=== PATIENT | male | born 1955 | race Caucasian/White ===

== ENCOUNTER 2019-01-07 21:01 | Emergency (ER) | payer BC ==
[2019-01-07] MEDS ORDERED: OXYCODONE-ACETAMINOPHEN 5-325 MG TABLET PO ONE (23:17)
[2019-01-07] MEDS ORDERED: DIPH/PERTUSS(ACELL)/TETANUS VAC/PF 0.5 ML SYR (>=10YO) IM ONE (23:17)
--- NOTE | 2019-01-08 00:05 | RADIOLOGY REPORT (SQ) ---
EXAM DESCRIPTION: CT HEAD WITHOUT IV CONTRAST COMPLETED DATE/TME: 01/07/2019 23:14 CLINICAL HISTORY: 63 years, Male, fall COMPARISON: None. TECHNIQUE: CT brain and maxillofacial without contrast. This exam was performed according to our departmental dose optimization program which includes use of automated exposure control, adjustment of the mA and/or kV according to patient size and/or use of iterative reconstruction technique. Images stored on PACS. All CT scanners at this facility use dose modulation, iterative reconstruction, and/or weight based dosing when appropriate to reduce radiation dose to as low as reasonably achievable (ALARA). [facility]: Dose Right [facility]: CareDose [facility]: Dose Right [facility]: Teradose 4D [facility]: BioAxone Therapeutic LIMITATIONS: None. FINDINGS: Brain: The ventricles, sulci, and cisterns are symmetric and unremarkable. The sanches-white matter differentiation is preserved. There is no mass effect, midline shift, intra- or extra-axial fluid collection/acute hemorrhage. Maxillofacial: LEFT maxillary sinus mucosal thickening. The frontal sinuses, frontal-ethmoid recesses, anterior/posterior ethmoids, sphenoid sinuses, and maxillary sinuses are otherwise well developed and clear. The osteomeatal complexes are patent. The nasal turbinates are within normal limits. Leftward nasal septal deviation with osseous spur abutting the inferior LEFT turbinate. The cribriform plate and lamina papyraceae within normal limits. Fractures of the bilateral nasal bones deviated toward the LEFT with fracture of the bony nasal septum suspected. Nasal soft tissue swelling. The orbits are unremarkable. The optic nerves and globes appear intact. The periorbital soft tissues show no evidence of inflammation. IMPRESSION: 1. No acute intracranial abnormalities. 2. Fractures of the bilateral nasal bones deviated toward the LEFT with suspected fracture of the bony nasal septum and nasal soft tissue swelling. TECHNICAL DOCUMENTATION: Quality ID # 436: Final reports with documentation of one or more dose reduction techniques (e.g., Automated exposure control, adjustment of the mA and/or kV according to patient size, use of iterative reconstruction technique) copyright 2011 [employer]- All Rights Reserved
--- NOTE | 2019-01-08 00:06 | RADIOLOGY REPORT (SQ) ---
EXAM DESCRIPTION: CT MAXILLOFACIAL WITHOUT IV CONTRAST COMPLETED DATE/TME: 01/07/2019 23:15 CLINICAL HISTORY: 63 years, Male, fall COMPARISON: None. TECHNIQUE: CT brain and maxillofacial without contrast. This exam was performed according to our departmental dose optimization program which includes use of automated exposure control, adjustment of the mA and/or kV according to patient size and/or use of iterative reconstruction technique. Images stored on PACS. All CT scanners at this facility use dose modulation, iterative reconstruction, and/or weight based dosing when appropriate to reduce radiation dose to as low as reasonably achievable (ALARA). [facility]: Dose Right [facility]: CareDose [facility]: Dose Right [facility]: Teradose 4D [facility]: [employer] LIMITATIONS: None. FINDINGS: Brain: The ventricles, sulci, and cisterns are symmetric and unremarkable. The sanches-white matter differentiation is preserved. There is no mass effect, midline shift, intra- or extra-axial fluid collection/acute hemorrhage. Maxillofacial: LEFT maxillary sinus mucosal thickening. The frontal sinuses, frontal-ethmoid recesses, anterior/posterior ethmoids, sphenoid sinuses, and maxillary sinuses are otherwise well developed and clear. The osteomeatal complexes are patent. The nasal turbinates are within normal limits. Leftward nasal septal deviation with osseous spur abutting the inferior LEFT turbinate. The cribriform plate and lamina papyraceae within normal limits. Fractures of the bilateral nasal bones deviated toward the LEFT with fracture of the bony nasal septum suspected. Nasal soft tissue swelling. The orbits are unremarkable. The optic nerves and globes appear intact. The periorbital soft tissues show no evidence of inflammation. IMPRESSION: 1. No acute intracranial abnormalities. 2. Fractures of the bilateral nasal bones deviated toward the LEFT with suspected fracture of the bony nasal septum and nasal soft tissue swelling. TECHNICAL DOCUMENTATION: Quality ID # [id number]: Final reports with documentation of one or more dose reduction techniques (e.g., Automated exposure control, adjustment of the mA and/or kV according to patient size, use of iterative reconstruction technique) copyright 2011 [employer]- All Rights Reserved
--- NOTE | 2019-01-08 00:08 | RADIOLOGY REPORT (SQ) ---
EXAM DESCRIPTION: [employer]: XR RIBS UNILATERAL WITH CHEST Views: 5, AP chest and 4 views of the right ribs CLINICAL HISTORY: 63 years Male, fall COMPARISON: None. FINDINGS: Chest single view: Lungs are clear, with no focal infiltrate, pneumothorax, or pleural effusion. Mediastinum is within normal limits for this positioning. Right Ribs: Visualized ribs are intact, with no displaced fractures. No suspicious lytic or blastic rib lesions. No subpleural thickening. IMPRESSION: 1. No acute findings.
--- NOTE | 2019-01-08 00:17 | RADIOLOGY REPORT (SQ) ---
EXAM DESCRIPTION: CT CERVICAL SPINE WITHOUT IV CONTRAST COMPLETED DATE/TME: 01/07/2019 23:14 CLINICAL HISTORY: 63 years, Male, fall COMPARISON: None. TECHNIQUE: Cervical spine CT was performed without contrast. Multiplanar reformatted images were provided. This exam was performed according to our departmental dose optimization program which includes use of automated exposure control, adjustment of the mA and/or kV according to patient size and/or use of iterative reconstruction technique. Images stored on PACS. All CT scanners at this facility use dose modulation, iterative reconstruction, and/or weight based dosing when appropriate to reduce radiation dose to as low as reasonably achievable (ALARA). [facility]: Dose Right [facility]: CareDose [facility]: Dose Right [facility]: Teradose 4D [facility]: [employer] LIMITATIONS: None. FINDINGS: There is normal alignment of the cervical spine without fracture or subluxation. The facets are normal in alignment bilaterally. The posterior elements including the spinous processes are intact. Straightening of the cervical spine which may be secondary to positioning for the examination. Morphology and attenuation of the vertebral bodies and intervertebral disk spaces is compatible with multilevel degenerative change. Multilevel loss of intervertebral disk height. Multilevel posterior osseous spurring results in at least moderate neuroforaminal narrowing throughout the cervical spine. Posterior osseous spurring results in mild multilevel central spinal canal narrowing, particularly at the C5-6 and C6-7 vertebral levels. The pre-and paravertebral soft tissues are within normal limits. IMPRESSION: 1. Straightening of the cervical spine which may be secondary to positioning for the examination versus spasm. 2. No fracture or acute subluxation. 3. Multilevel degenerative changes as detailed above. TECHNICAL DOCUMENTATION: Quality ID # 436: Final reports with documentation of one or more dose reduction techniques (e.g., Automated exposure control, adjustment of the mA and/or kV according to patient size, use of iterative reconstruction technique) copyright 2010 [employer]- All Rights Reserved
--- NOTE | 2019-01-08 00:25 | RADIOLOGY REPORT (SQ) ---
5 VIEWS OF LUMBAR SPINE HISTORY: Lower back pain. COMPARISON: None. FINDINGS: Lumbar alignment is maintained. No acute compression fracture is identified. There is multilevel anterior osteophytosis throughout the lumbar spine. Mild disc space narrowing at L5-S1. No evidence of spondylolysis on the oblique views. The sacroiliac joints are preserved. Generalized osteopenia is present. IMPRESSION: No acute compression fracture of the lumbar spine is seen. However, please note that if there is point tenderness or high clinical concern, a CT scan is recommended.
--- NOTE | 2019-01-08 01:10 | ER Document Report ---
ED Fall - General Chief Complaint: Fall Stated Complaint: FALL/FACIAL LACERATION Time Seen by Provider: 01/07/19 23:02 Mode of Arrival: Ambulatory Information source: Patient, Relative Notes: Patient is a 63-year-old male comes emergency room coming by his with complaint of a slip and fall while [place]. Patient states he was in a hurry went to turn and when he did he stepped off of the sidewalk lost his balance falling down face first into the corner of the sidewalk and hitting the right side of his face on the cement. He has complaints of nose pain and swelling he had no loss of consciousness is complaining mostly of right rib pain and sternal pain as well as low back pain. Patient states that he hit directly on his nose on the corner of the sidewalk. He has abrasions to the bridge of his nose and to the medial part of the ball. He did bleed from the left nare greater than the right for 10 to 15 minutes and then it stopped bleeding. He has a history of fracture of the nose in the past as well. And he has a history of deviated septum to the left. Patient also states he is not sure when he had his last tetanus shot. He states he does not go to doctors. They are down here from [place]. TRAVEL OUTSIDE OF THE [place] IN LAST 30 DAYS: No - HPI Occurred: Just prior to arrival Where: Home, Other - [place] Context: Tripped, Fell from standing Associated symptoms: denies: Lost consciousness Location of injury/pain: Back, Chest Quality of pain: Sharp, Stabbing, Throbbing Severity: Moderate - Related data Allergies/Adverse Reactions: No Known Allergies Allergy (Unverified 01/08/19 01:02) Past Medical History - General Information source: Patient - Social History Smoking Status: Never Smoker Cigarette use (# per day): No Chew tobacco use (# tins/day): No Smoking Education Provided: No Frequency of alcohol use: None Lives with: Family Family History: Reviewed & Not Pertinent Patient has suicidal ideation: No Patient has homicidal ideation: No Renal/ Medical History: Denies: Hx Peritoneal Dialysis Review of Systems - Review of Systems Constitutional: No symptoms reported EENT: See HPI, Nose pain, Nose congestion Cardiovascular: No symptoms reported Respiratory: No symptoms reported Gastrointestinal: No symptoms reported Genitourinary: No symptoms reported Male Genitourinary: No symptoms reported Musculoskeletal: See HPI, Back pain, Joint pain, Muscle pain, Muscle stiffness, Neck pain Skin: See HPI, Other - Abrasions Hematologic/Lymphatic: No symptoms reported Neurological/Psychological: No symptoms reported -: Yes All other systems reviewed and negative Physical Exam - Vital signs Vitals: Temp Pulse Resp BP Pulse Ox 98.0 F 88 16 153/81 H 98 01/07/19 21:10 01/07/19 21:10 01/07/19 21:10 01/07/19 21:10 01/07/19 21:10 Interpretation: Hypertensive - Notes Notes: PHYSICAL EXAMINATION: GENERAL:well-nourished and in no acute distress. But no obvious pain and discomfort. HEAD: normocephalic. Examination of patient's facial features shows that he has abrasions across the nose primarily across the bridge in the bulb of the nose. Mostly superficial abrasions nothing deeper laceration type. EYES: Pupils equal round and reactive to light, extraocular movements intact, sclera anicteric, conjunctiva are normal. ENT: Examination of the head and upper airway showed nasal mucosa to be moderately erythematous bilaterally there is some moist and dried blood in the nasal passage on the left with some moist blood on the right nare as well. There is a deviation to the left noted and but there is no septal hematomas noted on either the left or right side. Palpation of the nasal bone does not show any crepitus. NECK: Normal range of motion, supple without lymphadenopathy although patient displays some mild tenderness to palpation he has full range of motion without any discrepancies of the cervical spine. LUNGS: Breath sounds clear to auscultation bilaterally and equal. No wheezes rales or rhonchi. Palpation of patient's area of concern on his chest does show that he has some right anterior chest discomfort to palpation. Mostly the discomfort is intercostally and is more along the sternal right-sided border and the upper right lateral rib area. There is no crepitus felt on palpation. There is some mild tenderness noted on deep breathing with pressure applied to the area. HEART: Regular rate and rhythm without murmurs ABDOMEN: Soft, nontender, nondistended abdomen. No guarding, no rebound. No masses appreciated. Musculoskeletal: Patient's only area on the extremities and back area shows that he has some tenderness along the lumbar spine. This extends down into the upper portion of the sacrum. Patient believes he flipped himself over when he initially hit landing back on his lower back. He has not had any loss of urine or stool. He has negative leg raises bilaterally. He has good vascular exam in bilateral lower extremities. Patient has good DTRs in the right and left lower extremities. Patient has good strength against resistance with the lower extremities. Patient displays good sensation bilateral lower extremities to light touch. This is displayed both on the lateral and medial sides of the legs therefore no sign of saddle paresthesias noted. NEUROLOGICAL: Normal speech, normal gait. Normal sensory, motor exams PSYCH: Normal mood, normal affect. SKIN: See ENT above for full description of the abrasion to the face. Course - Re-evaluation Re-evalutation: 01/08/19 01:10 Patient had an extensive work-up with CT and x-rays and only found that he had nasal bone fractures. However patient weighs well over 300 pounds and improved force of him falling straight on his face is definitely a painful experience. I will place patient on an antibiotic secondary to the abrasions across the nasal area as well as the nosebleed patient has been dealing with. It is pretty much stopped bleeding completely at this point. I will give him some pain medication and a muscle relaxer as well. He has had a back to [place] on Thursday so he has been instructed to be very careful. He is also been instructed to apply antibiotic ointment to the abrasions to his face. - Vital Signs Vital signs: Temp Pulse Resp BP Pulse Ox 98.0 F 88 16 153/81 H 98 01/07/19 21:10 01/07/19 21:10 01/07/19 21:10 01/07/19 21:10 01/07/19 21:10 Discharge - Discharge Clinical Impression: Mechanical trip and fall, Lumbar spine contusion Nasal bones, closed fracture Qualifiers: Encounter type: initial encounter Qualified Code(s): S02.2XXA - Fracture of nasal bones, initial encounter for closed fracture Facial abrasion Qualifiers: Encounter type: initial encounter Qualified Code(s): S00.81XA - Abrasion of other part of head, initial encounter Contusion of right chest wall Qualifiers: Encounter type: initial encounter Qualified Code(s): S20.211A - Contusion of right front wall of thorax, initial encounter Lumbar spine strain Qualifiers: Encounter type: initial encounter Qualified Code(s): S39.012A - Strain of muscle, fascia and tendon of lower back, initial encounter Condition: Stable Disposition: HOME, SELF-CARE Instructions: Chest Wall Pain ([facility]), Rib Contusion ([facility]), Contusion ([facility]), Fracture of the Nose ([facility]) Additional Instructions: Home and rest. Ice to all parts that hurt 3-4 times a day. Medications prescribed. As we discussed you are going to hurt more in the next couple of days then you did today. Also you are leaving to drive home please make yourself get out and stretch more frequently than you would on a normal trip back to [place]. Hopefully this will cut down on any type of injury to the legs that may cause a blood clot. Should you have any concerns or problems over the course the next couple days return to ER for recheck. Prescriptions: Cephalexin Monohydrate [Keflex 500 mg Capsule] 500 mg PO Q6H 7 Days #28 capsule Methocarbamol [Robaxin 750 mg Tablet] 750 mg PO ASDIR PRN #40 tablet PRN Reason: Oxycodone HCl/Acetaminophen [Percocet 10-325 Mg Tablet] 1 each PO 6XD PRN #20 tablet PRN Reason: Forms: Elevated Blood Pressure
[2019-01-08] MEDS ORDERED: HYDROMORPHONE HCL INJ/PF 2 MG/ML AMPULE IM STA (01:18)
[2019-01-08 01:43] VITALS: BP 148/79
== END 2019-01-08 01:40 | disposition home or self-care (01) ==
LOC: ER 21:01
DX: S01.81XA Laceration without foreign body of other part of head, initial encounter (principal); S02.2XXA Fracture of nasal bones, initial encounter for closed fracture; S00.81XA Abrasion of other part of head, initial encounter; S30.0XXA Contusion of lower back and pelvis, initial encounter; S20.211A Contusion of right front wall of thorax, initial encounter; S39.012A Strain of muscle, fascia and tendon of lower back, initial encounter; W01.0XXA Fall on same level from slipping, tripping and stumbling without subsequent striking against object, initial encounter; Y92.009 Unspecified place in unspecified non-institutional (private) residence as the place of occurrence of the external cause; Z23 Encounter for immunization
CPT/HCPCS: 99284; 96372; 90471; 72110; 71101; 70450; 70486; 72125; 90715; J1170